=== PATIENT | female | born 1980 | race Caucasian/White ===

== ENCOUNTER 2019-06-01 08:20 | Observation (INO) | payer BC | END 2019-06-01 09:42 | disposition home or self-care (01) | LOC: LDH 08:20 | PROVIDERS: ADMIT Specialist; ATTEND Specialist | DX: O26.893 Other specified pregnancy related conditions, third trimester (principal); Z13.79 Encounter for other screening for genetic and chromosomal anomalies; Z3A.38 38 weeks gestation of pregnancy | CPT/HCPCS: 59025; 76819; G0378 ==

== ENCOUNTER → 2021-10-15 | Outpatient (CLI) | payer BC ==
[~2021-10-15] MED LIST: PREN1TAB26 PO
== END | disposition home or self-care (01) ==
LOC: RAH 10:30
PROVIDERS: ATTEND Physician Assistant Medical
DX: Z12.31 Encounter for screening mammogram for malignant neoplasm of breast (principal); Q85.9 Phakomatosis, unspecified
CPT/HCPCS: 77067

== ENCOUNTER → 2025-03-14 | Outpatient (CLI) | payer BC | END | disposition home or self-care (01) | LOC: RAH 08:50 | PROVIDERS: ATTEND Obstetrics & Gynecology | DX: Z12.31 Encounter for screening mammogram for malignant neoplasm of breast (principal) | CPT/HCPCS: 77067 ==

== ENCOUNTER → 2025-05-07 | Outpatient (CLI) | payer BC | END | disposition home or self-care (01) | LOC: RAH 13:34 | PROVIDERS: ATTEND Obstetrics & Gynecology | DX: R92.333 Mammographic heterogeneous density, bilateral breasts (principal) ==